=== PATIENT | female | born 1955 | race Caucasian/White ===

== ENCOUNTER → 2016-11-27 | Outpatient (CLI) | payer BC ==
[~2016-11-27] MED LIST: CYMBALTA30 MG PO; HALFPRIN81 MG PO; INVOKAMET 150-1 EACH PO; LOTRIMIN AF28.35 GM TOP; MICRONASE5 MG PO; MILK OF MAGNESI30 ML PO; MIRALAX17 GM PO; NEURONTIN400 MG PO; PRAVACHOL80 MG PO; PREMARIN30 GM VAG; TOUJEO SOL300 UNIT/1 SUBCUT; VASOTEC10 MG PO; VESICARE5 MG PO
== END | disposition short-term general hospital (02) ==
LOC: CLPAIN 07:56
DX: M47.26 Other spondylosis with radiculopathy, lumbar region (principal); E11.42 Type 2 diabetes mellitus with diabetic polyneuropathy

== ENCOUNTER 2016-12-11 14:38 | Day surgery (SDC) | payer BC | END 2016-12-11 16:15 | disposition short-term general hospital (02) | LOC: SURGOP 14:38 | PROC: 3E0U3BZ Introduction of Anesthetic Agent into Joints, Percutaneous Approach (ICD-10-PCS; principal; 2016-12-11) | PROC: 3E0U33Z Introduction of Anti-inflammatory into Joints, Percutaneous Approach (ICD-10-PCS; 2016-12-11) | DX: M47.816 Spondylosis without myelopathy or radiculopathy, lumbar region (principal); M51.16 Intervertebral disc disorders with radiculopathy, lumbar region; E11.42 Type 2 diabetes mellitus with diabetic polyneuropathy; K21.9 Gastro-esophageal reflux disease without esophagitis; E78.5 Hyperlipidemia, unspecified; I10 Essential (primary) hypertension; M79.2 Neuralgia and neuritis, unspecified; N95.2 Postmenopausal atrophic vaginitis; N39.41 Urge incontinence; Z87.19 Personal history of other diseases of the digestive system; Z88.6 Allergy status to analgesic agent; Z88.8 Allergy status to other drugs, medicaments and biological substances; Z79.82 Long term (current) use of aspirin; Z79.899 Other long term (current) drug therapy; Z90.710 Acquired absence of both cervix and uterus | CPT/HCPCS: J1040 ==